=== PATIENT | female | born 1955 | race Caucasian/White ===

== ENCOUNTER 2017-08-18 12:37 | Emergency (ER) | payer MEDICAID ==
[2017-08-18 12:42] VITALS: BP 145/69
--- NOTE | 2017-08-18 12:54 | ER Document Report ---
HPI - HPI Patient complains to provider of: morro wrist and left knee pain Onset: Other - chronic Onset/Duration: Persistent Quality of pain: Achy, Throbbing Pain Level: 3 Context: 62 yo female with hx carpal tunnel left wrist has chronic bilateral wrist pain and new left knee pain. No hx gout. No fever. No PCP. Can't tolerate pain any longer. Associated Symptoms: None Exacerbated by: Movement Relieved by: Denies Similar symptoms previously: Yes Recently seen / treated by doctor: No - ROS ROS below otherwise negative: Yes Systems Reviewed and Negative: Yes All other systems reviewed and negative - REPRODUCTIVE Reproductive: DENIES: : Past Medical History - General Information source: Patient - Social History Smoking Status: Unknown if Ever Smoked Frequency of alcohol use: None Drug Abuse: None Lives with: Family Family History: Reviewed & Not Pertinent Musculoskeltal Medical History: Reports Hx Arthritis - degenerative arthritis upper back, Reports Other - carpal tunnel Past Surgical History: Reports: Hx Appendectomy, Hx Section, Hx Tonsillectomy - Immunizations Hx Diphtheria, Pertussis, Tetanus Vaccination: Yes Vertical Provider Document - CONSTITUTIONAL Agree With Documented VS: Yes Exam Limitations: No Limitations General Appearance: No Apparent Distress - INFECTION CONTROL TRAVEL OUTSIDE OF THE [place] IN LAST 30 DAYS: No - HEENT HEENT: Normocephalic - NECK Neck: Supple - RESPIRATORY O2 Sat by Pulse Oximetry: 100 - MUSCULOSKELETAL/EXTREMETIES Musculoskeletal/Extremeties: MAEW, FROM, Tender, Edema - left wrist. negative: Eccymosis Notes: left knee and right wrist with no effusion, swelling, erythema or warmth. - NEURO Level of Consciousness: Awake, Alert, Appropriate Motor/Sensory: No Motor Deficit, No Sensory Deficit - DERM Integumentary: Warm, Dry Course - Re-evaluation Re-evalutation: 08/18/17 14:03 X-rays are negative per radiologist. I will refer her to a articulation officer. - Vital Signs Vital signs: Temp Pulse Resp BP Pulse Ox 98.4 F 65 18 145/69 H 100 08/18/17 12:41 08/18/17 12:41 08/18/17 12:41 08/18/17 12:41 08/18/17 12:41 Procedures - Immobilization Left Wrist Time completed: 14:10 Pre-Proc Neuro Vasc Exam: Normal Immobilizer type: Cock-up Performed by: PCT Post-Proc Neuro Vasc Exam: Normal Alignment checked and good: Yes Discharge - Discharge Clinical Impression: Polyarticular joint pain, hx carpal tunnel left wrist Condition: Good Disposition: HOME, SELF-CARE Instructions: Acetaminophen, Arthralgia ([facility]), Carpal Tunnel Syndrome ([facility]), Temporary Splint ([facility]) Additional Instructions: see the articulation officer joao for pain Referrals: NELSY PHILIP MD [ACTIVE STAFF] - Follow up as needed TERI BERMUDEZ DO [ACTIVE STAFF] - Follow up as needed
--- NOTE | 2017-08-18 13:41 | RADIOLOGY REPORT (SQ) ---
EXAM DESCRIPTION: KNEE LEFT 4 VIEW COMPLETED DATE/TIME: 08/18/2017 1:23 pm REASON FOR STUDY: polyarticular joint pain COMPARISON: None. NUMBER OF VIEWS: Four views. TECHNIQUE: AP, lateral, and both oblique radiographic images acquired of the left knee. LIMITATIONS: None. FINDINGS: MINERALIZATION: Normal. BONES: No acute fracture or dislocation. No worrisome bone lesions. JOINT: No effusion. SOFT TISSUES: No soft tissue swelling. No radio-opaque foreign body. OTHER: No other significant finding. IMPRESSION: NEGATIVE STUDY OF THE LEFT KNEE. NO RADIOGRAPHIC EVIDENCE OF ACUTE INJURY. TECHNICAL DOCUMENTATION: JOB ID: [id number] [employer]- All Rights Reserved
[2017-08-18] MEDS ORDERED: ACETAMINOPHEN 325 MG TABLET PO ONE (13:45)
--- NOTE | 2017-08-18 13:51 | RADIOLOGY REPORT (SQ) ---
EXAM DESCRIPTION: WRIST BILATERAL 3 VIEWS COMPLETED DATE/TIME: 08/18/2017 1:23 pm REASON FOR STUDY: polyarticular joint pain COMPARISON: None. NUMBER OF VIEWS: Three views of each ribs TECHNIQUE: AP, lateral, and oblique radiographic images acquired of the right and left wrist. LIMITATIONS: None. FINDINGS: MINERALIZATION: Normal. BONES: No acute fracture or dislocation. No worrisome bone lesions. Normal alignment. SOFT TISSUES: No soft tissue swelling. No foreign body. OTHER: No other significant finding. IMPRESSION: No significant findings. TECHNICAL DOCUMENTATION: JOB ID: [id number] [employer]- All Rights Reserved
== END 2017-08-18 14:29 | disposition home or self-care (01) ==
LOC: ER 12:37
DX: M25.562 Pain in left knee (principal); M25.532 Pain in left wrist; M25.531 Pain in right wrist; G89.29 Other chronic pain
CPT/HCPCS: 99283; 73562; 73110; L3908; J3490

== ENCOUNTER 2018-04-19 17:37 | Emergency (ER) | payer MEDICAID ==
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
--- NOTE | 2018-04-19 20:16 | RADIOLOGY REPORT (SQ) ---
EXAM DESCRIPTION: CHEST 2 VIEWS COMPLETED DATE/TIME: 04/19/2018 7:42 pm REASON FOR STUDY: mold exposure and cough COMPARISON: 03/27/2016 TECHNIQUE: Frontal and lateral radiographic views of the chest acquired. NUMBER OF VIEWS: Two view. LIMITATIONS: None. FINDINGS: LUNGS AND PLEURA: No pneumothorax. No acute consolidation or pleural effusion. Similar ri ght basilar scarring. MEDIASTINUM AND HILAR STRUCTURES: Stable. HEART AND VASCULAR STRUCTURES: Stable. BONES: No acute findings. HARDWARE: None in the chest. OTHER: No other significant finding. IMPRESSION: NO ACUTE FINDINGS. TECHNICAL DOCUMENTATION: JOB ID: [id number] 2010 [employer]- All Rights Reserved Reading location - IP/workstation name: [email or web address]
[2018-04-19 20:49] VITALS: BP 144/75
== END 2018-04-19 20:48 | disposition home or self-care (01) ==
LOC: ER 17:37
DX: Z77.120 Contact with and (suspected) exposure to mold (toxic) (principal); R51 Headache; R53.81 Other malaise; R05 Cough; R11.0 Nausea; F17.200 Nicotine dependence, unspecified, uncomplicated
CPT/HCPCS: 71046; 99284